=== PATIENT | female | born 1965 | race Caucasian/White ===

== ENCOUNTER 2018-04-20 09:33 | Day surgery (SDC) | payer BC ==
[~2018-04-20 09:33] MED LIST: Sodium Chloride 0.9% 5 ML Syringe FLUSH PRN
[2018-04-20 09:54] VITALS: BP 110/59
[2018-04-20] MEDS: Lactated Ringers 1,000 ML IV SCH (10:18)
[2018-04-20 10:47] LABS: ANION GAP 12.6 mmol/L (5-15); CHLORIDE,CL 102 mmol/L (98-115); SODIUM,NA 141 mmol/L (136-145)
[2018-04-20] MEDS: Potassium Chloride 20 MEQ Packet PO SCH (12:20)
== END 2018-04-20 12:30 | disposition home or self-care (01) ==
LOC: KA.SDS 09:33
PROVIDERS: ATTEND Family Medicine
DX: D64.9 Anemia, unspecified (principal); Z53.8 Procedure and treatment not carried out for other reasons; E87.6 Hypokalemia; R11.0 Nausea; Z88.5 Allergy status to narcotic agent
CPT/HCPCS: 36415; 80048; 85027; A9270-GY; J7120

== ENCOUNTER 2018-04-21 09:07 | Day surgery (SDC) | payer BC ==
[2018-04-21] MEDS ORDERED: fentaNYL 100 MCG/2 ML SDV ONE (09:36)
[2018-04-21] MEDS ORDERED: Midazolam 1 MG/ML 2 ML SDV ONE (09:36)
[2018-04-21] MEDS ORDERED: Propofol 200 MG/20 ML SDV ONE (09:37)
[2018-04-21 09:49] LABS: ANION GAP 10.7 mmol/L (5-15); CHLORIDE,CL 106 mmol/L (98-115); SODIUM,NA 142 mmol/L (136-145)
[2018-04-21] MEDS ORDERED: Sodium Chloride 0.9% 5 ML Syringe FLUSH PRN (10:00)
[2018-04-21] MEDS ORDERED: Lactated Ringers 1,000 ML IV SCH (10:00)
[2018-04-21] MEDS ORDERED: Potassium Chloride 20 MEQ in Premix Bag 1 BAG IV ONE (10:05)
[2018-04-21] MEDS ORDERED: Sodium Chloride 0.9% 250 ML IV SCH (10:30)
[2018-04-21] MEDS ORDERED: Lidocaine 2% 100 MG/5 ML Syringe ONE (10:54)
[2018-04-21] MEDS ORDERED: EPINEPHrine 1:10,000 1 MG/10 ML Syringe ONE (11:16)
[2018-04-21] MEDS ORDERED: fentaNYL 100 MCG/2 ML SDV IV ONE (12:20)
[2018-04-21] MEDS ORDERED: Midazolam 1 MG/ML 2 ML SDV IV ONE (12:20)
[2018-04-21] MEDS ORDERED: Propofol 200 MG/20 ML SDV IV ONE (12:20)
[2018-04-21] MEDS ORDERED: Lidocaine 2% 100 MG/5 ML Syringe IVPUSH ONE (12:20)
--- NOTE | 2018-04-21 12:55 | PCM.OPNOTE ---
- General Post-Op/Procedure Note Date of Surgery/Procedure: 04/21/18 Operative Procedure(s): Upper and lower GI Endoscopies. Anesthesia Technique: Moderate Sedation Primary Surgeon: Bertha Luo Complications: None Condition: Good Free Text/Narrative:: INFORMED CONSENT: Patient is here today for elective upper GI endoscopy. All aspects of this procedure have been discussed with the patient. All possible complications also, including possibility of perforation, infection, pain, bleeding, numbness of the throat, swallowing difficulty and unknown complications. In the event of perforation the patient may need surgical exploration to repair the defect. The patient understands fully well. Patient did not have any further questions for me at the end of my interview. The patient wishes for me to proceed. INSTRUMENT USED: Video gastroscope ANESTHESIA: [MAC] ASA CLASSIFICATION: [2] PROCEDURE PERFORMED: [Upper GI endoscopy and lower GI endoscopy] indication:Anemia with Hemoccult-positive stool PHARYNX: Normal. ESOPHAGUS: Normal. Proximal: Normal. Middle: Normal. Lower: Normal. GE Junction: Normal except for 5 cm hiatal hernia without inflammation STOMACH: Normal. Cardia: Normal. Fundus: Normal. Lesser Curvature: Normal. Greater Curvature: Normal. Antrum: Normal. Pylorus: Normal. DUODENUM: Normal. First Part: Normal. Second Part: Normal. Third Part: Normal. RETROFLEXION: Normal. BIOPSY: None. TOLERANCE: Excellent. COMPLICATIONS: None. INFORMED CONSENT: Patient is here today for elective colonoscopy. All aspects of this procedure have been discussed with the patient. All possible complications also, including possibility of perforation, infection, pain, bleeding and unknown complications. In the event of perforation patient may need to have abdominal exploration, colon resection, colostomy and even was discussed. Anesthetic complications were handled by anesthesia department. The patient understands fully well. Patient did not have any further questions for me at the end of my interview. The patient wishes for me to proceed. PREOPERATIVE DIAGNOSIS/INDICATIONS: [Hemoccult-positive stool and anemia] POSTOPERATIVE DIAGNOSIS: [normal colonoscopy] INSTRUMENT USED: Cody videocolonoscope. ASA CLASSIFICATION: [2] ANESTHESIA: Continuous EKG, oximetry and intermittent blood pressure and respiratory monitoring were performed throughout the procedure. IV Versed and Fentanyl were administered. PROCEDURE PERFORMED: Colonoscopy POSITIONS OF PATIENT: Left lateral. RECTUM: Normal. SIGMOID COLON: Normal. DESCENDING COLON: Normal. SPLENIC FLEXURE: Normal. TRANSVERSE COLON: Normal. HEPATIC FLEXURE: Normal. ASCENDING COLON: Normal. CECUM: Normal. ILEOCECAL VALVE: Normal. BIOPSY: None. TOLERANCE: Excellent. COMPLICATIONS: None. Intake & Output 04/20/18 04/21/18 04/21/18 22:59 06:59 14:59 Intake Total 320 Balance 320
[2018-04-21] MEDS ORDERED: Diatrizoate Meglumine/Diatrizoate Sodium 37% 120 ML Bottle PO ONE ×2 (16:11→16:15)
[2018-04-21] MEDS ORDERED: Iopamidol 612 MG/ML 75 ML Bottle IV ONE ×2 (16:11→16:15)
[2018-04-21] MEDS ORDERED: Sodium Chloride 0.9% 50 ML IV SCH ×2 (16:15)
== END 2018-04-21 17:43 | disposition home or self-care (01) ==
LOC: KA.SDS 09:07
PROVIDERS: ATTEND Family Medicine
DX: D50.9 Iron deficiency anemia, unspecified (principal); R19.5 Other fecal abnormalities; K44.9 Diaphragmatic hernia without obstruction or gangrene; Z79.899 Other long term (current) drug therapy; Z88.5 Allergy status to narcotic agent; Z88.8 Allergy status to other drugs, medicaments and biological substances
CPT/HCPCS: 36415; 74177; 80048; J2001; J2250; J2704; J3010; J3480; J7050; J7120; Q9963; Q9967

== ENCOUNTER 2018-09-15 17:42 | Observation (INO) | payer BC ==
[~2018-09-15 17:42] MED LIST changes: +Potassium Chloride 100 ML IV SCH; +Potassium Chloride 20 MEQ Tab.ER PO SCH; +Sodium Chloride 0.9% 250 ML IV SCH; -Sodium Chloride 0.9% 5 ML Syringe FLUSH PRN
[2018-09-15 18:31] LABS: ANION GAP 13.3 mmol/L (5-15); CHLORIDE,CL 91 mmol/L (98-115); SODIUM,NA 133 mmol/L (136-145)
[2018-09-15] MEDS: Potassium Chloride 100 ML IV SCH ×2 (19:02→22:39)
[2018-09-15] MEDS: Potassium Bicarbonate/Potassium Chloride 25 MEQ Tab.Eff PO SCH (21:10)
[2018-09-16] MEDS: D5 1/2 NS w/ 40 mEq/L KCl 1,000 ML IV SCH ×2 (02:43→14:20)
[2018-09-16 08:14] LABS: ANION GAP 9.7 mmol/L (5-15); CHLORIDE,CL 95 mmol/L (98-115); SODIUM,NA 135 mmol/L (136-145)
[2018-09-16] MEDS: Potassium Bicarbonate/Potassium Chloride 25 MEQ Tab.Eff PO SCH (08:54)
[2018-09-16] MEDS ORDERED: Potassium Bicarbonate/Potassium Chloride 25 MEQ Tab.Eff PO SCH (11:00)
--- NOTE | 2018-09-16 13:14 | PCM.PN ---
- General Info Date of Service: 09/16/18 Functional Status: Reports: Pain Controlled, Tolerating Diet, Urinating. Denies : New Symptoms - Review of Systems General: Denies: Weakness HEENT: Reports: No Symptoms Pulmonary: Reports: No Symptoms Cardiovascular: Reports: No Symptoms Gastrointestinal: Reports: Vomiting Genitourinary: Reports: No Symptoms Musculoskeletal: Reports: No Symptoms Skin: Reports: No Symptoms Neurological: Reports: No Symptoms Psychiatric: Denies: Confusion, Agitation, Cravings - Patient Data Vitals - Most Recent: Last Vital Signs Temp 97.9 F 09/16/18 11:00 Pulse 63 09/16/18 11:00 Resp 16 09/16/18 11:00 BP 96/55 L 09/16/18 11:00 Pulse Ox 98 09/16/18 11:00 Weight - Most Recent: 113 lb I&O - Last 24 Hours: Intake & Output 09/15/18 09/16/18 09/16/18 22:59 06:59 14:59 Intake Total 817 Output Total 400 Balance 417 Lab Results Last 24 Hours: Laboratory Results - last 24 hr 09/15/18 09/16/18 09/16/18 Range/Units 18:00 07:10 07:10 WBC 6.54 (5.00-10.00) 10^3/uL RBC 3.95 (3.80-5.50) 10^6/uL Hgb 11.0 L (12.0-16.0) g/dL Hct 32.2 L (37.0-47.0) % MCV 81.5 L (82.0-92.0) fL MCH 27.8 (27.0-31.0) pg MCHC 34.2 (32.0-36.0) g/dL RDW 16.3 H (11.5-14.5) % Plt Count 332 D (150-400) 10^3/uL MPV 9.0 (7.4-10.4) fL Immature Gran % (Auto) 0.2 (0.0-5.0) % Neut % (Auto) 63.4 (50.0-70.0) % Lymph % (Auto) 26.3 (20.0-40.0) % Eaton % (Auto) 8.9 H (2.0-8.0) % Eos % (Auto) 0.6 L (1.0-3.0) % Baso % (Auto) 0.6 (0.0-1.0) % Immature Gran # (Auto) 0.01 (0.00-0.50) 10^3/uL Neut # (Auto) 4.15 (2.50-7.00) 10^3/uL Lymph # (Auto) 1.72 (1.00-4.00) 10^3/uL Eaton # (Auto) 0.58 (0.10-0.80) 10^3/uL Eos # (Auto) 0.04 L (0.10-0.30) 10^3/uL Baso # (Auto) 0.04 (0.00-0.10) 10^3/uL Sodium 133 L 135 L (136-145) mmol/L Potassium 2.0 L* 2.6 L (3.3-5.3) mmol/L Chloride 91 L 95 L (98-115) mmol/L Carbon Dioxide 30.7 32.9 H (21.0-32.0) mmol/L Anion Gap 13.3 9.7 (5-15) mmol/L BUN 19 13 (6-25) mg/dL Creatinine 0.68 0.70 (0.51-1.17) mg/dL Est Cr Clr Drug Dosing 75.36 75.21 mL/min Estimated GFR (MDRD) > 60 > 60 mL/min Glucose 144 H 95 (75 - 99) mg/dL Calcium 9.0 8.3 L (8.7-10.3) mg/dL Total Bilirubin 0.5 (0.2-1.0) mg/dL AST 20 (15-37) U/L ALT 17 (12-78) U/L Alkaline Phosphatase 75 (46-116) IU/L Total Protein 5.4 L (6.4-8.2) g/dL Albumin 2.91 L (3.00-4.80) g/dL TSH, Ultra Sensitive 0.740 (0.340-4.820) uIU/mL Med Orders - Current: Current Medications Potassium Chloride/Dextrose/Sod Cl (D5 1/2 Ns W/ 40 Meq/L Kcl) 1,000 mls @ 100 mls/hr IV ASDIRECTED [facility] Last Admin: 09/16/18 02:43 Dose: 100 mls/hr Potassium Bicarb/Potassium Chloride (Potassium Chloride, Effervescent) 40 meq PO DAILY [facility] Last Admin: 09/16/18 08:54 Dose: 40 meq Potassium Bicarb/Potassium Chloride (Potassium Chloride, Effervescent) 25 meq PO DAILY [facility] Last Admin: 09/16/18 11:08 Dose: 25 meq Discontinued Medications Potassium Chloride (Kcl 20 Meq In Water 100 Ml) 100 mls @ 50 mls/hr IV ONETIME [facility] Stop: 09/15/18 23:59 Last Admin: 09/15/18 22:39 Dose: 25 mls/hr Potassium Chloride (Kcl 20 Meq In Water 100 Ml) 100 mls @ 50 mls/hr IV ONETIME [facility] Stop: 09/15/18 23:59 Sodium Chloride (Normal Saline) 250 mls @ 50 mls/hr IV ASDIRECTED [facility] Last Admin: 09/15/18 19:08 Dose: 50 mls/hr Potassium Chloride (Klor-Con M20) 40 meq PO ONETIME [facility] Stop: 09/15/18 23:59 - Exam Quality Assessment: No: Supplemental Oxygen General: Alert, Oriented, No Acute Distress Neck: Supple Lungs: Clear to Auscultation, Normal Respiratory Effort Cardiovascular: Regular Rate, Regular Rhythm, No Murmurs. No: Bradycardia, Tachycardia GI/Abdominal Exam: Normal Bowel Sounds, Soft Extremities: No Pedal Edema Peripheral Pulses: 2+: Radial (L), Radial (R) Neurological: Normal Tone, Sensation Intact Psy/Mental Status: Other (Became tearful during discussion of low potassium levels and likely etiology) - Problem List Review Problem List Initiated/Reviewed/Updated: Yes - My Orders Last 24 Hours: My Active Orders 09/16/18 11:00 Potassium Bicarb/Potassium Chl [Potassium Chloride, Effervescent] 25 meq PO DAILY - Plan Plan:: History 52-year-old female with labile potassium levels over the past 18 months without definitive etiology. He was admitted due to low potassium levels and the need for replacement with ongoing cardiac monitoring. Primary hospital problems Hypokalemia Low body weight Cyclic vomiting Overall plan, continued observation replace potassium IV/by mouth to upper limits of normal, ongoing telemetry. Long discussion with patient regarding disease process suspect psychogenic nature possible anorexia nervosa
[2018-09-17] MEDS: D5 1/2 NS w/ 40 mEq/L KCl 1,000 ML IV SCH (00:25)
[2018-09-17] MEDS: Potassium Bicarbonate/Potassium Chloride 25 MEQ Tab.Eff PO SCH (08:33)
[2018-09-17 09:27] LABS: ANION GAP 9.3 mmol/L (5-15); CHLORIDE,CL 105 mmol/L (98-115); SODIUM,NA 141 mmol/L (136-145)
--- NOTE | 2018-09-17 09:29 | HP ---
HISTORY OF PRESENT ILLNESS: This is a 52-year-old female who had a potassium drawn today in [facility] and reported out at 2.3 which is critically low. She was unable to be reached until late afternoon and she was on her way home from [place] to [place], [place] and I recommended that she present to the hospital at [place] for transfusion of IV potassium. Four days ago, her potassium had been 2.4 and we had infused potassium 40 mEq IV with a repeat today which was at 2.3. When she presented to the hospital, her potassium today was 2.0 and so it was decided that we would admit her to the hospital so she could have a repeat potassium in the morning as she works in [place]. The patient states that about five days ago she noted that she was having increased moods and usually when she has increased moods, her potassium drops. She does have a history of chronic hypokalemia due to nausea and vomiting which is also chronic. She also noted last night that she was beginning to have bilateral leg cramping, which is due to the hypokalemia. The patient began to be seen in our facility in 01/2018. She has had a history of chronic nausea episodes with vomiting and states that usually she vomits at night, it has been very intermittent since the last time I saw her which was 06/09/2018. She was seen by Gastroenterology on 06/22/2018 and they wished to do further evaluation, but patient refused. She had an upper and lower GI on 04/21/2018. She has had a CT scan of the abdomen also in April, which was negative except for a 5 cm hiatal hernia. The patient does have history of anxiety and depression. We also discussed previous use of Zoloft, which caused side effects and she needs to consider possibly taking medication for the same. She has attempted to use omeprazole, PPIs, and Zantac without any improvement of her symptoms either. PAST MEDICAL HISTORY: Hypokalemia, chronic nausea and vomiting, hiatal hernia, anemia. PAST SURGICAL HISTORY: 1. Hysterectomy. 2. Gastroscopy and colonoscopy due to blood in stool in 04/2018 that were negative for known cause. REVIEW OF SYSTEMS: HEENT: Head normocephalic. NECK: Range of motion supple. SKIN: Negative. CARDIAC: Denies any chest pain or palpitations. RESPIRATORY: Denies any cough or shortness of breath. GASTROINTESTINAL: See HPI. Eating habits are poor and this was discussed at length. MUSCULOSKELETAL: Complains of aching of the lower extremities and cramping. NEUROLOGIC: Denies any headaches. Denies any numbness or weakness of the extremities. PHYSICAL EXAMINATION: GENERAL: This is a pleasant middle-aged thin female. VITAL SIGNS: HEAD: Normocephalic. NECK: Range of motion was supple. No cervical lymphadenopathy. Carotids are equal without bruit. CARDIAC: Heart tones are regular without murmur or extra heart sounds. LUNGS: Clear. There are no rales, rhonchi, or wheeze. ABDOMEN: Soft, nondistended. Bowel sounds are present. History of constipation. EXTREMITIES: No swelling of the joints and no edema present. NEUROLOGIC: The patient is alert and responding well, intermittently having depressive moods. IMPRESSION/PLAN: 1. Hypokalemia. 2. Chronic nausea and vomiting. 3. History of anemia. PLAN: She will receive 40 mEq IV potassium and 40 mEq effervescent potassium tonight, then will have IV D5 half-normal saline with 40 mEq at 100 mL an hour throughout the night. She will have followup labs of CBC, CMP, and TSH in the morning and depending on her potassium in the morning, I have recommended that she stay on potassium 40 mEq at home as much as possible, and further evaluation will depend on the progress during hospitalization. /[id number]/MODL
[2018-09-17] MEDS ORDERED: Sulfamethoxazole/Trimethoprim 800-160 MG Tab PO SCH (12:30)
--- NOTE | 2018-09-24 11:49 | PCM.DCSUM1 ---
Discharge Summary - Hospital Course Diagnosis: Stroke: No - Discharge Data Discharge Date: 09/17/18 Discharge Disposition: Home, Self-Care 01 Condition: Good - Patient Instructions Diet: Heart Healthy Diet Activity: As Tolerated Driving: May Drive Today Showering/Bathing: May Shower - Discharge Plan *PRESCRIPTION DRUG MONITORING PROGRAM REVIEWED*: Not Applicable *COPY OF PRESCRIPTION DRUG MONITORING REPORT IN PATIENT PATRICK: Not Applicable Prescriptions/Med Rec: Amitriptyline [Elavil] 10 mg PO BEDTIME #10 tab Sulfamethoxazole/Trimethoprim [Septra DS] 1 tab PO BID #8 tablet Home Medications: Home Meds Amitriptyline [Elavil] 10 mg PO BEDTIME #10 tab 09/17/18 [Rx] Sulfamethoxazole/Trimethoprim [Septra DS] 1 tab PO BID #8 tablet 09/17/18 [Rx] - Discharge Summary/Plan Comment DC Time >30 min.: No Discharge Summary/Plan Comment: Final diagnosis Hypokalemia Low body weight Cyclic vomiting UTI, symptomatic Anxiety Brief history 52-year-old female with labile potassium levels over the past 18 months without definitive etiology. She had been admitted due to low potassium levels and the need for replacement with ongoing cardiac monitoring. She had been seen and evaluated in both clinic and emergency department and required potassium supplementation. She has been thoroughly worked up in the past including gastroenterology without any definitive cause of etiology. Does have cyclic vomiting which is thought to be likely cause. She was admitted to [facility] for IV supplementation oral supplementation along with cardiac monitoring. hospital course was without complication, she was replaced with potassium both by mouth and IV upon discharge her potassium was 4.9. She tolerated her diet. She had no complications cardiac-walker. She remained on telemetry. For her cyclic vomiting she did agree to low-dose amitriptyline upon discharge. She states she is very sensitive to medications and past as far as excessive drowsiness. She had no cyclical vomiting while in the hospital. She was hydrated well. He did have symptomatic UTI was treated with Bactrim. I have reviewed her previous GI consultation and although patient did have endoscopy and colonoscopy that seemed to suggest colitis, the cardiovascular sonographer that was who was in receipt of these tests reviewed them independently and was not convinced of such colitis desired to repeat both tests however the patient thought it was futile and did not want to follow through with repeating tests again. 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 Medication changes last adjustments upon discharge Amitriptyline 10 mg by mouth daily at bedtime Bactrim DS Follow-up instructions were given, report any more vomiting. See her back in the [facility] - Patient Data Vitals - Most Recent: Last Vital Signs Temp 98.6 F 09/17/18 11:00 Pulse 56 L 09/17/18 11:00 Resp 16 09/17/18 11:00 BP 103/56 L 09/17/18 11:00 Pulse Ox 100 09/17/18 11:00 Weight - Most Recent: 113 lb Med Orders - Current: Current Medications Discontinued Medications Potassium Chloride (Kcl 20 Meq In Water 100 Ml) 100 mls @ 50 mls/hr IV ONETIME [facility] Stop: 09/15/18 23:59 Last Admin: 09/15/18 22:39 Dose: 25 mls/hr Potassium Chloride (Kcl 20 Meq In Water 100 Ml) 100 mls @ 50 mls/hr IV ONETIME [facility] Stop: 09/15/18 23:59 Sodium Chloride (Normal Saline) 250 mls @ 50 mls/hr IV ASDIRECTED [facility] Last Admin: 09/15/18 19:08 Dose: 50 mls/hr Potassium Chloride/Dextrose/Sod Cl (D5 1/2 Ns W/ 40 Meq/L Kcl) 1,000 mls @ 100 mls/hr IV ASDIRECTED [facility] Last Admin: 09/17/18 00:25 Dose: 100 mls/hr Potassium Bicarb/Potassium Chloride (Potassium Chloride, Effervescent) 40 meq PO DAILY [facility] Last Admin: 09/17/18 08:33 Dose: 40 meq Potassium Bicarb/Potassium Chloride (Potassium Chloride, Effervescent) 25 meq PO DAILY [facility] Last Admin: 09/16/18 11:08 Dose: 25 meq Potassium Chloride (Klor-Con M20) 40 meq PO ONETIME [facility] Stop: 09/15/18 23:59 Trimethoprim/Sulfamethoxazole (Septra Ds) 1 tab PO BID [facility] Last Admin: 09/17/18 13:50 Dose: 1 tab
== END 2018-09-17 15:03 | disposition home or self-care (01) ==
LOC: KA.IVTHER 17:42 → KA.MS 19:45
PROVIDERS: ADMIT Physician Assistant Medical; ATTEND Family Medicine
DX: E87.6 Hypokalemia (principal); G43.A0 Cyclical vomiting, in migraine, not intractable; K44.9 Diaphragmatic hernia without obstruction or gangrene
CPT/HCPCS: 36415; 80048; 80053; 81001; 83735; 84443; 85025; 96365; 96366; A9270-GY; G0378; G0379; J3480; J7050

== ENCOUNTER 2018-12-16 16:16 | Observation (INO) | payer BC ==
[2018-12-16] MEDS ORDERED: Sodium Chloride 0.9% 10 ML Syringe FLUSH PRN (16:47)
[2018-12-16] MEDS ORDERED: Metoclopramide 10 MG/2 ML SDV IVPUSH ONE (16:49)
[2018-12-16] MEDS ORDERED: Sodium Chloride 0.9% 1,000 ML IV ONE (16:49)
--- NOTE | 2018-12-16 17:09 | EDM.PDOC ---
ED HPI GENERAL MEDICAL PROBLEM - General Chief Complaint: General Stated Complaint: Vomiting Time Seen by Provider: 12/16/18 16:41 Source of Information: Reports: Patient History Limitations: Reports: No Limitations - History of Present Illness INITIAL COMMENTS - FREE TEXT/NARRATIVE: Patient is a 53-year-old female who presents to the emergency department this afternoon with a complaint of nausea, vomiting and low potassium. Patient states that she was in [place] this morning had symptoms of nausea and vomiting, which correlate with her history of low potassium. She contacted Faith Gaona, from [facility] and lab work was ordered. Patient was found to have 2.2, potassium so patient decided to present to [facility] for treatment. Discussed case with Faith Gaona from [facility] who knows the patient well. At this time. Patient feels weak and fatigued, has nausea and vomiting, and overall body aches. Patient denies chest pain, shortness of breath, headache, fever, blood in vomitus or stool, or taking any medication. It may cause the hypokalemia. Onset: Gradual Duration: Hour(s): Severity: Moderate Improves with: Reports: None Worsens with: Reports: None Associated Symptoms: Reports: Nausea/Vomiting - Related Data Allergies Allergy/AdvReac Type Severity Reaction Status Date / Time codeine Allergy Vomiting Verified 12/16/18 16:34 Home Meds: Home Meds Amitriptyline [Elavil] 10 mg PO BEDTIME #10 tab 09/17/18 [Rx] Potassium Chloride 10 meq PO QID 12/16/18 [History] Past Medical History HEENT History: Reports: Impaired Vision, Sinusitis Cardiovascular History: Reports: Other (See Below) Other Cardiovascular History: chronic hypokalemia, chronic low hemoglobin Respiratory History: Reports: Pneumonia, Recurrent Gastrointestinal History: Reports: Chronic Constipation Genitourinary History: Reports: None ADMITTANCE ATTENDANT History: Reports: Polycystic Ovaries, , Spontaneous Musculoskeletal History: Reports: Arthritis, Other (See Below) Other Musculoskeletal History: right shoulder Neurological History: Reports: Migraines Hematologic History: Reports: Anemia - Infectious Disease History Infectious Disease History: Reports: Chicken Pox, Measles, Mumps - Past Surgical History Cardiovascular Surgical History: Reports: None Respiratory Surgical History: Reports: None GI Surgical History: Reports: Colonoscopy Female Surgical History: Reports: Hysterectomy, Salpingo-Oophorectomy Neurological Surgical History: Reports: None Musculoskeletal Surgical History: Reports: None Social & Family History - Family History Family Medical History: Noncontributory - Tobacco Use Smoking Status *Q: Former Smoker Used Tobacco, but Quit: Yes Month/Year Tobacco Last Used: quit 1 year ago Second Hand Smoke Exposure: No - Caffeine Use Caffeine Use: Reports: Tea Other Caffeine Use: rare diet pop - Recreational Drug Use Recreational Drug Use: No ED ROS GENERAL - Review of Systems Review Of Systems: ROS reveals no pertinent complaints other than HPI. Constitutional: Reports: Weakness, Fatigue HEENT: Reports: No Symptoms Respiratory: Reports: No Symptoms Cardiovascular: Reports: No Symptoms Endocrine: Reports: No Symptoms GI/Abdominal: Reports: Nausea, Vomiting : Reports: No Symptoms Musculoskeletal: Reports: Muscle Pain Skin: Reports: No Symptoms Neurological: Reports: No Symptoms Psychiatric: Reports: Anxiety Hematologic/Lymphatic: Reports: No Symptoms Immunologic: Reports: No Symptoms ED EXAM, GENERAL - Physical Exam Exam: See Below Exam Limited By: No Limitations General Appearance: Alert, WD/WN, Anxious Eye Exam: Bilateral Eye: Normal Inspection Throat/Mouth: Normal Inspection, Normal Oropharynx, No Airway Compromise Head: Atraumatic, Normocephalic Neck: Normal Inspection, Supple, Non-Tender Respiratory/Chest: No Respiratory Distress, Lungs Clear, Normal Breath Sounds, No Accessory Muscle Use, Chest Non-Tender Cardiovascular: Regular Rate, Rhythm, No Murmur GI/Abdominal: Normal Bowel Sounds, Soft, Non-Tender, No Organomegaly, No Distention, No Abnormal Bruit, No Mass Back Exam: Normal Inspection. No: CVA Tenderness (L), CVA Tenderness (R) Extremities: Normal Inspection, No Pedal Edema Neurological: Alert, Oriented, Normal Cognition, No Motor/Sensory Deficits Psychiatric: Anxious Skin Exam: Warm, Dry, Intact, Normal Color, No Rash Lymphatic: No Adenopathy EKG INTERPRETATION EKG Date: 12/16/18 Time: 16:55 Rhythm: NSR Rate (Beats/Min): 69 [place]: Normal P-Wave: Present QRS: Normal ST-T: Normal QT: Normal MO/PQ Interval: Shortened Comparison: No Change Course - Vital Signs Last Recorded V/S: Last Vital Signs Temp 99.8 F 12/16/18 16:29 Pulse 73 12/16/18 16:29 Resp 20 12/16/18 16:29 BP 98/46 L 12/16/18 16:29 Pulse Ox 96 12/16/18 16:29 - Orders/Labs/Meds Orders: Active Orders 24 hr Category Date Time Status EKG Documentation Completion [RC] ASDIRECTED Care 12/16/18 16:49 Ordered Peripheral IV Care [RC] . DIRECTED Care 12/16/18 16:49 Ordered UA RFX CARLY AND CULT IF INDIC [URIN] Stat Lab 12/16/18 16:47 Ordered Sodium Chloride 0.9% @ 999 MLS/HR (1000ml) Med 12/16/18 16:49 Ordered Sodium Chloride 0.9% [Normal Saline] 1,000 ml IV .BOLUS Sodium Chloride 0.9% [Saline Flush] Med 12/16/18 16:47 Ordered 10 ml FLUSH Q8HR PRN Peripheral IV Insertion Adult [OM.PC] Routine Oth 12/16/18 16:47 Ordered Medication Orders Sodium Chloride (Normal Saline) 1,000 mls @ 999 mls/hr IV .BOLUS ONE Stop: 12/16/18 17:49 Last Admin: 12/16/18 17:22 Dose: 999 mls/hr Sodium Chloride (Saline Flush) 10 ml FLUSH Q8HR PRN PRN Reason: keep vein open Last Admin: 12/16/18 17:24 Dose: 10 ml Labs: Laboratory Tests 12/16/18 12/16/18 Range/Units 17:00 17:00 WBC 9.87 (5.00-10.00) 10^3/uL RBC 4.52 (3.80-5.50) 10^6/uL Hgb 13.0 D (12.0-16.0) g/dL Hct 37.0 (37.0-47.0) % MCV 81.9 L (82.0-92.0) fL MCH 28.8 (27.0-31.0) pg MCHC 35.1 (32.0-36.0) g/dL RDW 14.3 (11.5-14.5) % Plt Count 384 (150-400) 10^3/uL MPV 8.7 (7.4-10.4) fL Immature Gran % (Auto) 0.2 (0.0-5.0) % Neut % (Auto) 67.4 (50.0-70.0) % Lymph % (Auto) 22.0 (20.0-40.0) % [place] % (Auto) 9.7 H (2.0-8.0) % Eos % (Auto) 0.2 L (1.0-3.0) % Baso % (Auto) 0.5 (0.0-1.0) % Immature Gran # (Auto) 0.02 (0.00-0.50) 10^3/uL Neut # (Auto) 6.65 (2.50-7.00) 10^3/uL Lymph # (Auto) 2.17 (1.00-4.00) 10^3/uL [place] # (Auto) 0.96 H (0.10-0.80) 10^3/uL Eos # (Auto) 0.02 L (0.10-0.30) 10^3/uL Baso # (Auto) 0.05 (0.00-0.10) 10^3/uL Sodium 135 L (136-145) mmol/L Potassium 2.2 L* D (3.3-5.3) mmol/L Chloride 92 L D (98-115) mmol/L Carbon Dioxide 34.4 H (21.0-32.0) mmol/L Anion Gap 10.8 (5-15) mmol/L BUN 15 (6-25) mg/dL Creatinine 0.70 (0.51-1.17) mg/dL Est Cr Clr Drug Dosing 70.39 mL/min Estimated GFR (MDRD) > 60 mL/min Glucose 90 (75 - 99) mg/dL Calcium 8.9 (8.7-10.3) mg/dL Total Bilirubin 0.4 (0.2-1.0) mg/dL AST 14 L (15-37) U/L ALT 11 L (12-78) U/L Alkaline Phosphatase 103 (46-116) IU/L Total Protein 6.9 (6.4-8.2) g/dL Albumin 3.42 (3.00-4.80) g/dL Meds: Medications Generic Name Dose Route Start Last Admin Trade Name Freq PRN Reason Stop Dose Admin Sodium Chloride 1,000 mls @ 999 mls/hr 12/16/18 16:49 12/16/18 17:22 Normal Saline IV 12/16/18 17:49 999 mls/hr .BOLUS ONE Administration Sodium Chloride 10 ml 12/16/18 16:47 12/16/18 17:24 Saline Flush FLUSH 10 ml Q8HR PRN Administration keep vein open Discontinued Medications Generic Name Dose Route Start Last Admin Trade Name Freq PRN Reason Stop Dose Admin Metoclopramide HCl 10 mg 12/16/18 16:49 12/16/18 17:21 Reglan IVPUSH 12/16/18 16:50 10 mg ONETIME ONE Administration - Re-Assessments/Exams Free Text/Narrative Re-Assessment/Exam: 12/16/18 17:43 Patient afebrile, vital signs stable, nausea and vomiting controlled. Discussed case with Faith Gaona, from [facility]. Patient will be admitted for observation and followed. Departure - Departure Time of Disposition: 17:44 Disposition: Refer to Observation Condition: Fair Clinical Impression: Hypokalemia Nausea and vomiting Qualifiers: Vomiting type: unspecified Vomiting Intractability: intractable Qualified Code( s): R11.2 - Nausea with vomiting, unspecified - Discharge Information Referrals: Faith Gaona PA-C [Primary Care Provider] - Forms: ED Department Discharge - My Orders Last 24 Hours: My Active Orders 12/16/18 16:47 UA RFX CARLY AND CULT IF INDIC [URIN] Stat Sodium Chloride 0.9% [Saline Flush] 10 ml FLUSH Q8HR PRN Peripheral IV Insertion Adult [OM.PC] Routine 12/16/18 16:49 EKG Documentation Completion [RC] ASDIRECTED Peripheral IV Care [RC] . DIRECTED Sodium Chloride 0.9% @ 999 MLS/HR (1000ml) Sodium Chloride 0.9% [Normal Saline] 1,000 ml IV .BOLUS - Assessment/Plan Last 24 Hours: My Active Orders 12/16/18 16:47 UA RFX CARLY AND CULT IF INDIC [URIN] Stat Sodium Chloride 0.9% [Saline Flush] 10 ml FLUSH Q8HR PRN Peripheral IV Insertion Adult [OM.PC] Routine 12/16/18 16:49 EKG Documentation Completion [RC] ASDIRECTED Peripheral IV Care [RC] . DIRECTED Sodium Chloride 0.9% @ 999 MLS/HR (1000ml) Sodium Chloride 0.9% [Normal Saline] 1,000 ml IV .BOLUS Assessment:: Hypokalemia Plan: Admitted for observation to [facility]
[2018-12-16 17:30] LABS: ANION GAP 10.8 mmol/L (5-15); CHLORIDE,CL 92 mmol/L (98-115); SODIUM,NA 135 mmol/L (136-145)
[2018-12-16] MEDS ORDERED: GI Cocktail 45 ML BOTTLE PO ONE (17:54)
[2018-12-16] MEDS ORDERED: Potassium Chloride 20 MEQ in Premix Bag 1 BAG IV ONE ×2 (18:46→23:00)
[2018-12-16] MEDS ORDERED: Sodium Chloride 0.9% 1,000 ML IV SCH (19:00)
[2018-12-16] MEDS ORDERED: Potassium Bicarbonate/Potassium Chloride 25 MEQ Tab.Eff PO SCH (19:30)
[2018-12-16] MEDS: Potassium Chloride 20 MEQ in Premix Bag 1 BAG IV SCH ×2 (21:06→23:05)
[2018-12-17] MEDS ORDERED: Potassium Chloride 10 MEQ Tab.ER PO SCH (09:00)
--- NOTE | 2018-12-17 20:12 | HP ---
HISTORY OF PRESENT ILLNESS: This is a 53-year-old female who was admitted to the hospital via the emergency room afternoon of 12/16/2018. The patient has a long-standing history of cyclic vomiting with nausea and eventually with low potassium, which is chronic. The patient also has chronic anemia. The patient had called me this morning to allow her to have a potassium check and this was done in [place] where she works. It was reported to me at 2.2, and I immediately called the patient to present to the closest emergency room for further evaluation and treatment of the extremely low potassium level. The patient does have a history of potassium as low as 1.9. We have been able to keep it between 3 and 3.5 in the last several months. She was last seen in our facility on 11/18/2018, and at that time her potassium was 3.2. The patient is complaining of nausea and vomiting for the last 5 to 6 days. She has had an evaluation with gastroscopy, CAT scan, colonoscopy in the last one year; previously has seen Gastroenterology in [place]. She also saw Gastroenterology in [place], and she refused to have further testing. The patient today is asking that she be referred to [facility]. The patient does have severe anxiety. She states that she has a need to remain thin and not to eat too much for weight gain. She has never had a problem of obesity but her parents were obese. The patient also moved from [place] 1-2 years ago and actually is quitting her job in [place] as she travels from [place] to [place] every day for work, sometimes able to do work at home. She apparently has quit her job and will be moving back to [place]. I was contacted by the ER provider that her potassium was 2.2, but her EKG was normal and all other lab work was stable. The hemoglobin was good at 13.0. White count is normal at 9.87. AST and ALT are low normal. Otherwise, creatinine was normal at 0.70. PAST MEDICAL HISTORY: The problem with nausea, vomiting, and cyclic vomiting; migraine headaches; chronic anemia; chronic hypokalemia; sinusitis; and chronic constipation. PAST SURGICAL HISTORY: Hysterectomy with salpingo-oophorectomy and has had several colonoscopies and gastroscopies, the last were done in 04/2018. MEDICATIONS: Her medications at home are amitriptyline 10 to 20 mg at bedtime and Potassium Effervescent 10 mEq t.i.d. to q.i.d. when she can tolerate that. She will continue on those medications. ALLERGIES: She has no known allergies. SOCIAL/PERSONAL HISTORY: The patient does work as a older adult social work specialist in [employer] and drives from [facility] frequently for work. Tobacco use, quit 1 year ago; caffeine use, decreased small amount; and recreational drugs, none. REVIEW OF SYSTEMS: HEENT: Denies any nasal congestion, sore throat, or headache at this time, though does have a history of chronic migraine. SKIN: Negative. RESPIRATORY: Denies any cough or shortness of breath. Quit smoking about one year ago. GASTROINTESTINAL: Nausea and vomiting for 4 to 5 days. Denies any abdominal pain. Denies any diarrhea, but does have occasional constipation. GENITOURINARY: Denies any urinary burning or frequency. She is status post hysterectomy. NEUROLOGICAL: No apparent weakness or discomfort in the other upper and lower extremities. Cranial nerves within normal limits. PSYCHOLOGICAL: The patient is anxious, depressed, and refuses to stay the entire night. PHYSICAL EXAMINATION: GENERAL: Pleasant female, in no acute distress. VITAL SIGNS: Stable. Temperature 99.8, pulse 73, respirations 20, blood pressure 98/46, and pulse is 96. IV is infusing. SKIN: Negative. HEENT: Head, normocephalic. Bilateral TMs within normal limits. Normal oropharynx. NECK: Range of motion supple, nontender. No cervical lymphadenopathy. RESPIRATORY: No respiratory distress. Lungs are clear without rales, rhonchi, or wheeze. CARDIOVASCULAR: Heart tones are regular without murmur. GASTROINTESTINAL: Bowel sounds are present. Abdomen is soft and nontender. EXTREMITIES: Good range of motion of both upper and lower extremities. No edema present. NEUROLOGICAL: She is alert and orientated x3. PSYCHIATRIC: Noted anxiety. IMPRESSION: 1. Chronic hypokalemia with critical potassium at 2.2, with weakness and generalized aching. 2. Cyclic vomiting. 3. Anxiety and depression. PLAN: The patient is admitted to observation for infusion of IV potassium which will be 60 mEq over 6 hours or 20 mEq every 2 hours. She will be given a dose of Effervescent Potassium 25 mEq x2. The patient refuses to stay until morning for a repeat potassium as she has to be at work as she has only 2 days left at her work. She will agree to having her potassium done sometime tomorrow so that we could notify her results. I discussed with her the concerns for her leaving in the middle of the night due to fatigue and side effects from the potassium or the difficulty with keeping her potassium elevated. She has never had relief from medications such as Zofran or Reglan for her nausea and vomiting she is taking. The patient was notified that we do recommend that she stay into morning, but the patient did refuse. I will call the patient tomorrow with the results of her potassium when available. /[id number]/MODL MTDD
[2018-12-17] MEDS ORDERED: Amitriptyline 10 MG Tab PO SCH (21:00)
== END 2018-12-17 01:35 | disposition home or self-care (01) ==
LOC: KA.ED 16:16 → KA.MS 17:44
PROVIDERS: ADMIT Physician Assistant Surgical; ATTEND Physician Assistant Medical
DX: E87.6 Hypokalemia (principal); K31.89 Other diseases of stomach and duodenum; R11.2 Nausea with vomiting, unspecified; D64.9 Anemia, unspecified; F41.9 Anxiety disorder, unspecified; F32.9 Major depressive disorder, single episode, unspecified; Z87.891 Personal history of nicotine dependence; Z88.5 Allergy status to narcotic agent
CPT/HCPCS: 80053; 81001; 85025; 87086; 93005; 96361; 96365; 96366; 96374; 96375; 99285-25; A4217; A9270-GY; G0378; J2765; J3480; J7030